=== PATIENT | female | born 1985 | race Caucasian/White ===

== ENCOUNTER 2020-03-12 14:07 | Emergency (ER) | payer BC, SELFPAY ==
--- NOTE | ~2020-03-12 | XR_ITS ---
EXAMINATION: XR chest 1V portable DATE: 03/12/2020 14:55 INDICATION: Palpitations with left shoulder pain TECHNIQUE: frontal view of the chest was obtained. COMPARISON: None FINDINGS: The lungs are clear with no focal airspace opacities, pulmonary edema, pleural effusion or pneumothor ax. The cardiomediastinal silhouette is normal. Visualized bones and soft tissues are unremarkable. IMPRESSION: 1. No acute cardiopulmonary disease. Reviewed, dictated and finalized at location B.
--- NOTE | 2020-03-12 14:18 | ECG_ITS ---
Measurements Intervals [place] Rate: 89 P: 43 IA: 137 QRS: 24 QRSD: 81 T: 27 QT: 339 QTc: 414 Interpretive Statements SINUS RHYTHM NONSPECIFIC ST & T-WAVE ABNORMALITY- ANTEROLATERAL LEADS BORDERLINE ECG Electronically Signed On 03-12-2020 16:28:56 CDT by Adal Farrell D.O.
[2020-03-12 14:20] VITALS: BP 132/87; PULSE 92; RESP 18; TEMP 37.6; O2SAT 99
[2020-03-12] MEDS: ASPIRIN 81 MG CHEWABLE TABLET 324 MG PO (14:26)
[2020-03-12 14:48] LABS: Basophils Percent Auto 0.6 % (0.2-1.2); Eosinophils Absolute Auto 0.1 K/mm3 (0-0.3); Eosinophils Percent Auto 1.5 % (0-4.4); Hematocrit 43.3 % (37.0-47.0); Hemoglobin 14.8 g/dL (12.0-15.0); Immature Granulocyte Absolute 0.02 K/mm3 (0.00-0.031); Immature Granulocyte Percent A 0.3 % (0-0.5); Lymphocytes Absolute Auto 1.44 K/mm3 (0.9-3.2); Lymphocytes Percent Auto 23.3 % (18.3-44.2); Mean Corpuscular HGB Conc 34.2 g/dl (32-36); Mean Corpuscular Hemoglobin 29.2 pg (26-34); Mean Corpuscular Volume 85.4 fl (80-100); Mean Platelet Volume 9.7 fl (7.4-10.4); Monocytes Absolute Auto 0.5 K/mm3 (0.1-0.6); Monocytes Percent Auto 8.3 % (2.6-8.5); Neutrophils Absolute Auto 4.1 K/mm3 (1.3-6.7); Platelet Count Result 224 k/mm3 (150-375); Red Blood Count 5.07 M/mm3 (4.2-5.4); Red Cell Distribution Width 12.1 % (11.5-14.5); White Blood Count 6.2 K/mm3 (4.5-10.0)
[2020-03-12 14:58] LABS: INR 0.9; Partial Thromboplastin Time 28.3 SECONDS (22.3-36.8)
--- NOTE | 2020-03-12 15:02 | ED.ARRPALP ---
HPI - Arrhythmia/Palpitations General Chief Complaint: Arrhythmia/Palpitations Stated Complaint: heart palp Time Seen by Provider: 03/12/20 14:27 Source: patient and family Mode of arrival: ambulatory Limitations: no limitations History of Present Illness HPI narrative: 34 years old white female presents with the patient, constant started last night. Patient denies any aggravating or relieving factors. Patient denies any chest pain, shortness of breath, fever, chills, nausea, vomiting, abdominal pain, urinary symptoms. Patient denies any new medications. The patient and her denies any possibility of stress or anxiety. Related Data Home Medications Medication Instructions Recorded Confirmed No Home Medications 03/12/20 03/12/20 Allergies Allergy/AdvReac Type Severity Reaction Status Date / Time No Known Allergies Allergy Verified 03/12/20 14:26 Review of Systems Review of Systems: Narrative: CONSTITUTIONAL: Denies fever, chills, or sweats. EYES: Denies visual changes, redness, or discharge. ENT: Denies rhinorrhea, congestion, sore throat, or otalgia. CARDIOVASCULAR: Denies chest pain, palpitations, or edema. RESPIRATORY: Denies cough or dyspnea. GASTROINTESTINAL: Denies abdominal pain, nausea, vomiting, or diarrhea. GENITOURINARY: Denies dysuria or hematuria. SKIN: Denies rash or itching. MUSCULOSKELETAL: Denies back pain, joint pain, or myalgia. NEUROLOGIC: Denies headache, numbness, or weakness. PSYCHIATRIC: Denies anxiety or depression. [facility] Social History Social History (Updated 03/12/20 @ 15:06 by Angelica Schilling MD) Second hand tobacco smoke exposure: No Alcohol intake: unknown Substance use: unknown Gender identity (if verbalized by the patient): Female Exam Narrative: Exam Narrative: General appearance: Well-developed, well-nourished Skin: Normal color Head: Normocephalic, nontraumatic Eyes: Clear conjunctiva ENT: Oropharynx normal, ears normal, nose normal Neck: Supple, nontender Chest and respiratory: Airway patent, no respiratory distress, no accessory muscle use Heart: Regular rate/rhythm Abdomen: Soft, nontender, no organomegaly, quiet bowel sounds Vascular: Normal peripheral pulses, normal capillary refill. Musculoskeletal: Normal range of motion, nontender back Neurologic: Alert and oriented ?3, [facility] is normal as tested, no gross motor deficit Course Course Emergency Course: Stable Vital Signs Vital signs: Vital Signs Temperature 37.6 C H 03/12/20 14:20 Pulse Rate 92 03/12/20 14:20 Respiratory Rate 18 03/12/20 14:20 Blood Pressure 132/87 03/12/20 14:20 Pulse Oximetry 99 03/12/20 14:20 Temperature 37.6 C H 03/12/20 14:20 Pulse Rate 92 03/12/20 14:20 Respiratory Rate 18 03/12/20 14:20 Blood Pressure 132/87 03/12/20 14:20 Pulse Oximetry 99 03/12/20 14:20 MDM - Arrhythmia/Palpitations MDM Narrative Medical decision making narrative: Patient presents with palpitation which have been steady and constant since last night. EKG showed normal sinus rhythm at 89 bpm, the monitor showing normal heart rhythm while patient is still having palpitation feeling. The plan to get labs, TSH, urine drug screen, d-dimer and chest x-ray. Further plan to follow Patient denies any possibility of anxiety or stress. Lab Data Result diagrams: 03/12/20 14:37 03/12/20 14:37 Labs: Lab Results 03/12/20 03/12/20 03/12/20 Range/Units 14:36 14:36 14:37 WBC 6.2 (4.5-10.0) K/mm3 RBC 5.07 (4.2-5.4) M/mm3 Hgb 14.8 (12.0-15.0) g/dL Hct 43.3 (37.0-47.0) % MCV 85.4 (80-100) fl MCH 29.2 (26-34) pg MCHC 34.2 (32-36)
[2020-03-12 15:06] LABS: Anion Gap 10 mmol/L (8-16); Blood Urea Nitrogen 14 mg/dL (7-17); Calcium 9.4 mg/dL (8.4-10.2); Carbon Dioxide 28 mmol/L (22-30); Chloride 101 mmol/L (98-107); Estimated CRCL calculation 72 ml/min; Estimated Glomerular Filt Rate > 60; Glucose 110 mg/dL (65-105); Sodium 139 mmol/L (137-145)
[2020-03-12 15:18] LABS: Troponin I < 0.012 ng/mL (0.000-0.034)
[2020-03-12 15:43] LABS: Alanine Aminotransferase 23 U/L (4-35); Albumin Level 4.6 g/dL (3.5-5.1); Alkaline Phosphatase 93 U/L (38-126); Anion Gap 9 mmol/L (8-16); Aspartate Amino Transferase 35 U/L (14-36); Bilirubin,Total 0.4 mg/dL (0.2-1.3); Blood Urea Nitrogen 14 mg/dL (7-17); Calcium 9.5 mg/dL (8.4-10.2); Carbon Dioxide 28 mmol/L (22-30); Chloride 101 mmol/L (98-107); Estimated CRCL calculation 72 ml/min; Estimated Glomerular Filt Rate > 60; Glucose 113 mg/dL (65-105); Sodium 138 mmol/L (137-145)
[2020-03-12 15:47] LABS: D Dimer < 0.22 ug/mL (<0.48)
[2020-03-12 15:55] LABS: Add Urine Microscopic? YES; Appearance Urine Clear (Clear); Bilirubin Urine Negative (Negative); Blood Urine Negative (Negative); Color Urine Straw (Yellow); Glucose Urine UA Negative (Negative); Ketones Urine Negative (Negative); Leukocyte Esterase Ur Negative LEU/UL (Negative); Nitrate Urine Negative (Negative); Protein Urine Negative (Negative); RBC Urine 0-2 /hpf (0-2); Specific Grav Ur 1.014 (1.001-1.035); Squamous Epithelial Cell Urine Rare /hpf (Few); Urobilinogen Urine Negative mg/dL (<2.0); WBC Urine 0-3 /hpf
[2020-03-12 16:06] LABS: Amphetamine Screen Urine Negative (Negative); Barbiturate Screen Urine Negative (Negative); Benzodiazepines Screen Urine Negative (Negative); Cannabinoid Screen Urine Negative (Negative); Cocaine Screen Urine Negative (Negative); Methadone Screen Urine Negative (Negative); Opiate Screen Urine Negative (Negative); Phencyclidine Screen Urine Negative (Negative)
[2020-03-12 16:41] VITALS: BP 107/68; PULSE 72; RESP 13; O2SAT 98
== END 2020-03-12 16:49 | disposition home or self-care (01) ==
PROVIDERS: Emergency Provider Emergency Medicine
DX: R00.2 Palpitations (principal); R94.31 Abnormal electrocardiogram [ECG] [EKG]
CPT/HCPCS: 36415; 71045; 80048; 80053; 80307; 81001; 81025; 84443; 84484; 85025; 85380; 85610; 85730; 93005; 99284; A9270

== ENCOUNTER → 2023-02-16 16:34 | Outpatient (CLI) | payer OTHER, SELFPAY ==
--- NOTE | ~2023-02-16 | XR_ITS ---
EXAMINATION: XR chest 2V Exam Date/Time: 02/16/2023 16:59 CDT HISTORY: CHEST PAIN Comparison: 03/12/2020. RESULT: Lines, tubes, and devices: None. Lungs and pleura: Clear. Cardiomediastinal silhouette: Stable. Other: No acute osseous or upper abdominal finding. IMPRESSION: No acute cardiopulmonary process. Reviewed, dictated and finalized at location K.
--- NOTE | ~2023-02-16 | XR_ITS ---
EXAM: XR shoulder LT min 2V DATE: 02/16/2023 17:18 HISTORY: LEFT SHOULDER PAIN . COMPARISON: None available. FINDINGS: Normal mineralization. No fracture or dislocation. No lytic or blastic lesion. Joint space s are maintained. No erosion or periosteal change. Soft tissues within normal limits. IMPRESSION: Normal left shoulder radiograph findings. Reviewed, dictated and finalized at location K.
== END ==
PROVIDERS: PCP Family Medicine; Visit Provider Family Medicine
DX: N64.4 Mastodynia (principal); R07.89 Other chest pain; M25.512 Pain in left shoulder
CPT/HCPCS: 71046; 73030

== ENCOUNTER 2023-02-21 07:20 | Outpatient (CLI) | payer OTHER, SELFPAY ==
--- NOTE | ~2023-02-21 | MM_ITS ---
EXAMINATION: MM screening imani BI w bart HISTORY: Screening TECHNIQUE: Craniocaudal and mediolateral oblique 3-D tomosynthesis images were obtained and synthetic 2-D images were generated. CAD analysis was submitted and interpreted. COMPARISON: No prior mammogram is available for comparison at this institution. BREAST PARENCHYMAL COMPOSITION: There are scattered areas of fibroglandular density. FINDINGS: There are asymmetries in the upper outer quadrant of the right breast with possible archite ctural distortion. There is no evidence for malignancy in the left breast. IMPRESSION: 1. Right breast asymmetries with possible architectural distortion, upper outer quadrant. 2. Additional mammographic views and possible breast ultrasound are recommended. BI-RADS Category 0: Incomplete: Needs additional imaging evaluation. Reviewed, dictated and finalized at location A. IMPRESSION: 1. Right breast asymmetries with possible architectural distortion, upper outer quadrant. 2. Additional mammographic views and possible breast ultrasound are recommended . BI-RADS Category 0: Incomplete: Needs additional imaging evaluation.
== END 2023-02-21 07:21 | disposition home or self-care (01) ==
LOC: CHSIMG 07:22
PROVIDERS: PCP Family Medicine; Visit Provider Family Medicine
DX: Z12.31 Encounter for screening mammogram for malignant neoplasm of breast (principal); R92.8 Other abnormal and inconclusive findings on diagnostic imaging of breast
CPT/HCPCS: 77063; 77067

== ENCOUNTER 2023-02-27 08:49 | Outpatient (CLI) | payer OTHER, SELFPAY ==
--- NOTE | ~2023-02-27 | MMUS_ITS ---
EXAMINATION: MM diagnostic imani RT w bart, US breast RT limited HISTORY: Right breast asymmetry, possible architectural distortion, upper outer quadrant, reported on 02/21/2023 screening mammogram TECHNIQUE: Additional 3-D tomosynthesis images of the right breast were performed and synthetic 2-D i mages were generated. CAD analysis was submitted and interpreted. High resolution upper outer quadran t right breast ultrasound was performed. COMPARISON: 02/21/2023 bilateral screening mammogram FINDINGS: MAMMOGRAPHIC FINDINGS: No suspicious mass or architectural distortion is detected. ULTRASOUND: No suspicious mass or shadowing, cyst or other significant abnormality is noted in the upper outer qu adrant right breast. IMPRESSION: 1. No mammographic or sonographic evidence of malignancy 2. Routine annual mammographic screening is recommended BI-RADS Category 1: Negative Reviewed, dictated and finalized at location A. IMPRESSION: 1. No mammographic or sonographic evidence of malignancy 2. Routine annual mammographic screening is recommended BI-RADS Category 1: Negative
== END 2023-02-27 08:50 | disposition home or self-care (01) ==
PROVIDERS: PCP Family Medicine; Visit Provider Family Medicine
DX: R92.8 Other abnormal and inconclusive findings on diagnostic imaging of breast (principal)
CPT/HCPCS: 76642; 77061; 77065; G0279

== ENCOUNTER 2023-03-09 20:36 | Emergency (ER) | payer OTHER, SELFPAY ==
--- NOTE | ~2023-03-09 | XR_ITS ---
EXAMINATION: XR foot LT min 3V DATE: 03/09/2023 22:59 INDICATION: Left foot injury and pain. TECHNIQUE: 4 views of left foot were obtained. COMPARISON: None. FINDINGS: There is a nondisplaced intra-articular oblique fracture of base of fifth metatarsal. Joint spaces are normal. IMPRESSION: 1. Nondisplaced intra-articular oblique fracture of base of fifth metatarsal. Reviewed, dictated and finalized at location E.
[2023-03-09 20:40] VITALS: BP 134/83; PULSE 102; RESP 20; TEMP 36.2; O2SAT 97
[2023-03-09 22:52] VITALS: BP 147/76; PULSE 85; RESP 20; TEMP 36.1; O2SAT 99
[2023-03-10 00:42] VITALS: BP 123/73; PULSE 80; RESP 16; TEMP 35.9; O2SAT 100
--- NOTE | 2023-03-10 01:48 | ED.LOWEXIN ---
HPI - Extremity Injury (Lower) General Chief Complaint: Extremity Injury, Lower Stated Complaint: foot pain Time Seen by Provider: 03/10/23 01:41 History of Present Illness HPI Narrative: 37-year-old female reports to the emergency department for evaluation for left foot pain after she fell while playing volleyball prior to arrival. Patient states she was playing volleyball outside and inverted her ankle and felt a crack in the lateral aspect of her left foot. She reports difficulty ambulating since then with associated pain. She denies other injury acquired. She did not hit her head or lose consciousness. She denies ankle pain, leg pain, paresthesias. Related Data Allergies Allergy/AdvReac Type Severity Reaction Status Date / Time No Known Allergies Allergy Verified 02/09/21 15:10 Review of Systems Review of Systems: CONSTITUTIONAL: Denies fever, chills EYES: Denies visual changes, redness, or discharge. ENT: Denies rhinorrhea, congestion, sore throat, or otalgia. CARDIOVASCULAR: Denies chest pain, palpitations, or edema. RESPIRATORY: Denies cough or dyspnea. GASTROINTESTINAL: Denies abdominal pain, nausea, vomiting, or diarrhea. GENITOURINARY: Denies dysuria or hematuria. SKIN: Denies rash or itching. MUSCULOSKELETAL: See HPI NEUROLOGIC: Denies headache, numbness, dizziness, or weakness. PSYCHIATRIC: Denies anxiety or depression. [facility] Past Medical History Medical History Labral tear of hip, degenerative Surgical History Surgical History History of hip surgery Social History Social History Social History: Smoking status: Never smoker Second hand tobacco smoke exposure: No Alcohol intake: never Substance use: never Substance use type: does not use Living arrangements: with family Occupation/Education: occupation Gender identity (if verbalized by the patient): Female Sexual Orientation (if Verbalized by the Patient): Straight or Heterosexual Exam Narrative: GENERAL: Well-appearing, in no acute distress. HEAD: Normocephalic NECK: Supple. CHEST: No respiratory distress. Clear to auscultation, no adventitious breath sounds. HEART: Regular rate and rhythm. No murmur heard. Normal peripheral pulses. EXTREMITIES: Tenderness to the proximal fifth metatarsal. No tenderness to remainder of foot, ankle or lower extremity. No overlying skin changes, lacerations or abrasions. Cap refill less than 2. Sensation intact. DP pulse 2+. SKIN: Warm, dry, no rash. NEURO: No focal deficits. Alert and oriented x3. PSYCH: Normal mood and affect. Course Vital Signs Vital signs: Vital Signs Temperature 97.2 F L 03/09/23 20:40 Pulse Rate 102 H 03/09/23 20:40 Respiratory Rate 20 03/09/23 20:40 Blood Pressure 134/83 03/09/23 20:40 Pulse Oximetry 97 03/09/23 20:40 Temperature 96.6 F L 03/10/23 00:42 Pulse Rate 80 03/10/23 00:42 Respiratory Rate 16 03/10/23 00:42 Blood Pressure 123/73 03/10/23 00:42 Pulse Oximetry 100 03/10/23 00:42 MDM - Extremity Injury (Lower) MDM Narrative Medical decision making narrative: 37-year-old female reports for evaluation for left foot pain after she had a mechanical fall playing volleyball prior to arrival. No other injuries acquired. Vital stable other than mild tachycardia that has since resolved. Patient is well-appearing on exam with tenderness to the proximal fifth metatarsal. She is neurovascularly intact. X-rays obtained showing a nondisplaced intra-articular oblique fracture of the base of the fifth metatarsal. Imaging discussed with patient. She was placed in a posterior OCL and provided crutches. Encouraged Tylenol, ibuprofen, RICE, [place] prescription provided for breakthrough pain. Referral for orthopedics provided and encouraged cecelia
[2023-03-10] MEDS: IBUPROFEN 600 MG TABLET PO (01:58)
[2023-03-10] MEDS: ACETAMINOPHEN 325 MG TABLET 650 MG PO (01:59)
--- NOTE | 2023-03-10 02:22 | PC.NURSE ---
Short leg ortho splint to left lwoer extremity. Pt tolerated well. CMS intact befor and after application
--- NOTE | 2023-03-18 15:39 | PC.NURSE ---
Late entry: short leg OCl to left lower ext applied on 03/10/23 @ [id number]
== END 2023-03-10 02:28 | disposition home or self-care (01) ==
PROVIDERS: Emergency Provider Physician Assistant; PCP Family Medicine
DX: S92.355A Nondisplaced fracture of fifth metatarsal bone, left foot, initial encounter for closed fracture (principal); X50.9XXA Other and unspecified overexertion or strenuous movements or postures, initial encounter; Y93.68 Activity, volleyball (beach) (court)
CPT/HCPCS: 29515; 73630; 99284; A9270

== ENCOUNTER → 2023-04-08 09:49 | Outpatient (CLI) | payer OTHER, SELFPAY ==
--- NOTE | ~2023-04-08 | XR_ITS ---
EXAM: XR foot LT min 3V DATE: 04/08/2023 10:09 HISTORY: Fx 5th metatarsal . COMPARISON: 03/09/2023. FINDINGS: Normal mineralization. Redemonstration of the transverse proximal left fifth metatarsal fr acture, with interval healing change. No new acute fracture or dislocation. No lytic or blastic lesio n. Joint spaces are maintained. No erosion or periosteal change. Soft tissues within normal limits. IMPRESSION: Evolving healing change in the transverse fracture of the proximal left fifth metatarsal. Reviewed, dictated and finalized at location K.
== END ==
DX: S92.352D Displaced fracture of fifth metatarsal bone, left foot, subsequent encounter for fracture with routine healing (principal)
CPT/HCPCS: 73630

== ENCOUNTER 2023-08-14 17:36 | Emergency (ER) | payer OTHER, SELFPAY ==
[2023-08-14 17:41] VITALS: BP 131/85; PULSE 85; RESP 16; TEMP 36.5; O2SAT 99
--- NOTE | 2023-08-14 18:27 | ED.FEMALEGU ---
HPI - Female Genitourinary General Chief complaint: Urogenital-Female Stated complaint: Uti symptoms Time Seen by Provider: 08/14/23 18:21 Source: patient and RN notes reviewed Mode of arrival: ambulatory Limitations: no limitations History of Present Illness HPI Narrative: Patient presents today complaining of dysuria, low back pain, decreased appetite, suprapubic pressure, and fever up to 100.4. Symptoms began this morning. States dysuria has worsened throughout the day. No [id number] treatment prior to arrival. No recent antibiotic use. Related Data Allergies Allergy/AdvReac Type Severity Reaction Status Date / Time No Known Allergies Allergy Verified 08/14/23 17:50 Review of Systems Review of Systems: CONSTITUTIONAL: Denies body aches, chills, or sweats.+ fever EYES: Denies visual changes, redness, or discharge. ENT: Denies rhinorrhea, congestion, sore throat, or otalgia. CARDIOVASCULAR: Denies chest pain, palpitations, or edema. RESPIRATORY: Denies cough or dyspnea. GASTROINTESTINAL: Denies nausea, vomiting, or diarrhea.+ suprapubic pressure, decreased appetite GENITOURINARY: + dysuria SKIN: Denies rash, itching, or wounds. MUSCULOSKELETAL: Denies joint pain, or myalgia.+ low back pain NEUROLOGIC: Denies headache, numbness, tingling, or weakness. PSYCH: Denies depression or anxiety. [facility] Past Medical History Medical History Labral tear of hip, degenerative Surgical History Surgical History History of hip surgery Social History Social History Social History: Smoking status: Never smoker Second hand tobacco smoke exposure: No Alcohol intake: never Substance use: never Substance use type: does not use Living arrangements: with family Occupation/Education: occupation Gender identity (if verbalized by the patient): Female Sexual Orientation (if Verbalized by the Patient): Straight or Heterosexual Comments At time of signature, I have reviewed and agree with nursing past medical, surgical, social and family history unless otherwise noted. Please see nursing chart for further information. There is no relevant family history pertinent to the presenting complaint Exam Narrative: GENERAL: Well-appearing, well-nourished, and in no acute distress. HEAD: Normocephalic, atraumatic. EYES: EOMI. No redness or drainage. Conjunctivae normal. ENT: Mucous membranes pink and moist. NECK: Normal AROM. CHEST: No respiratory distress. Clear to auscultation. HEART: Regular rate and rhythm. No murmur appreciated. ABDOMEN: Soft, nontender, nondistended, normal active bowel sounds. -CVAT MUSCULOSKELETAL: No bony tenderness. EXTREMITIES: Normal range of motion. No edema. SKIN: Warm, dry, no rash. Capillary refill normal. Normal skin turgor. NEURO: No focal deficits. Alert and oriented x3. Gait steady. PSYCH: Normal affect. No signs of depression or anxiety. Course Course Level of Care: Express Care Visit Vital Signs Vital signs: Vital Signs Temperature 97.7 F 08/14/23 17:41 Pulse Rate 85 08/14/23 17:41 Respiratory Rate 16 08/14/23 17:41 Blood Pressure 131/85 08/14/23 17:41 Pulse Oximetry 99 08/14/23 17:41 Oxygen Delivery Room Air 08/14/23 17:41 Temperature 97.7 F 08/14/23 17:41 Pulse Rate 85 08/14/23 17:41 Respiratory Rate 16 08/14/23 17:41 Blood Pressure 131/85 08/14/23 17:41 Pulse Oximetry 99 08/14/23 17:41 Oxygen Delivery Room Air 08/14/23 17:41 Reviewed MDM - Female Genitourinary MDM Narrative Medical decision making narrative: Urinalysis is negative, but patient will be started on Keflex due to her symptoms. Culture pending. Differential Diagnosis Differential diagnosis: Likely urinary tract infection, vaginitis, cystitis a
== END 2023-08-14 18:36 | disposition home or self-care (01) ==
PROVIDERS: Emergency Provider Nurse Practitioner; PCP Family Medicine
DX: R30.0 Dysuria (principal)
CPT/HCPCS: 81003; 87086; 99213; G0463

== ENCOUNTER 2023-12-16 09:54 | Outpatient (CLI) | payer OTHER, SELFPAY ==
[2023-12-16 10:27] LABS: Basophils Absolute Auto 0.06 K/mm3 (0.00-0.10); Basophils Percent Auto 0.9 % (0.0-1.0); Eosinophils Absolute Auto 0.09 K/mm3 (0.02-0.50); Eosinophils Percent Auto 1.4 % (1.0-6.0); Hematocrit 42.7 % (35.0-49.0); Hemoglobin 14.1 g/dL (12.0-15.0); Immature Granulocyte Absolute 0.03 K/mm3 (0.00-0.00); Immature Granulocyte Percent A 0.5 % (0.0-0.0); Lymphocytes Absolute Auto 1.64 K/mm3 (1.10-4.50); Lymphocytes Percent Auto 25.3 % (18.0-42.0); Mean Corpuscular Hemoglobin 28.2 pg (27.0-31.0); Mean Corpuscular Volume 85.4 fL (78.0-102.0); Monocytes Absolute Auto 0.48 K/mm3 (0.10-0.90); Monocytes Percent Auto 7.4 % (2.0-11.0); Neutrophils Absolute Auto 4.18 K/mm3 (1.70-7.20); Neutrophils Percent Auto 64.5 % (50.0-70.0); Platelet Count Result 203 K/mm3 (150-420); Red Cell Distribution Width 12.3 % (11.6-14.4); White Blood Count 6.5 K/mm3 (4.8-10.8)
[2023-12-16 10:40] LABS: Hemoglobin A1C 5.1 % (<5.7)
[2023-12-16 11:17] LABS: Alanine Aminotransferase 22 U/L (14-59); Albumin Level 3.8 g/dL (3.4-5.0); Alkaline Phosphatase 50 U/L (46-116); Anion Gap 9 mmol/L (4-12); Aspartate Amino Transferase 23 U/L (15-37); Bilirubin,Total 0.4 mg/dL (0.00-1.00); Blood Urea Nitrogen 15 mg/dL (7-18); Calcium 8.8 mg/dL (8.5-10.1); Carbon Dioxide 28 mmol/L (21-32); Chloride 103 mmol/L (98-108); Cholesterol 164 mg/dL (0-200); Estimated Glomerular Filt Rate > 60; Free T4 Free Thyroxine 0.85 ng/dL (0.76-1.46); Glucose 92 mg/dL (70-99); HDL Direct 75 mg/dL (40-60); LDL Cholesterol Calculated 73 mg/dL (<130); Osmolality Calculated 290 mOsm/kg (285-295); Potassium 4.2 mmol/L (3.5-5.1); Sodium 140 mmol/L (136-145); Thyroid Stimulating Hormone 1.54 uIU/mL (0.36-3.74); Total Protein 7.1 g/dL (6.4-8.2); Triglycerides 81 mg/dL (0-150); Vitamin B12 778 pg/mL (193-986)
[2023-12-19 11:39] LABS: Vitamin D 1,25 (OH)2 Total 44 pg/mL (18-72); Vitamin D2 1,25 (OH)2 10 pg/mL; Vitamin D3 1,25 (OH)2 34 pg/mL
== END 2023-12-16 09:55 | disposition home or self-care (01) ==
LOC: CHSLAB 09:56
PROVIDERS: PCP Nurse Practitioner Women's Health; Visit Provider Nurse Practitioner Women's Health
DX: N93.8 Other specified abnormal uterine and vaginal bleeding (principal)
CPT/HCPCS: 36415; 80053; 80061; 82607; 82652; 83036; 84439; 84443; 85025

== ENCOUNTER 2024-01-29 00:56 | Day surgery (SDC) | payer OTHER, SELFPAY ==
--- NOTE | 2024-01-18 16:29 | SUR.PREOP ---
Report to the Outpatient Waiting Room, entrance under the green pavilion located off [facility], at time _0715_ on date _01/29/24_. Planned Procedure Time: _09_. Time changes happen often and if your time is changed the preop area will call you the afternoon before. - You and your visitor will be asked to self-screen and do not enter if you have any COVID symptoms. - A mask is optional within the hospital at this time. Patients may have clear liquids (water, carbonated beverages, clear teas, apple juice) until 3 hours prior to surgery with a maximum of 20 ounces. - No food from midnight until time of surgery - Infants may have breast milk until 4 hours before surgery, infant formula 6 hours prior to surgery. - Children will be allowed to drink immediately following surgery. If applicable, please bring a bottle or sippy cup to assist with drinking. Juice, water, soda, and popsicles are readily available. For infants on formula, please bring formula the day of surgery. Pacifiers are allowed. Take the following medications with a SIP of water the morning of surgery: n/a DO NOT STOP ANY OF YOUR OTHER PRESCRIPTION MEDICATIONS PRIOR TO SURGERY ?EXCEPT THE FOLLOWING Medications to discontinue per physician - hold multivitamin 3 days prior to procedure Date to take last dose Please no make-up, nail portuguese, hairspray, perfume, deodorant, or body powder the day of surgery. No jewelry (including any body piercings) or valuables the day of surgery, leave them at home. Please take a shower or bath the night before, or the morning of, surgery with an antibacterial soap. Wear comfortable, loose fitting clothing. Children are encouraged to wear pajamas. - Jewelry must be removed prior to entering the operating room. Rings and piercings that are not removed may be cut off. - The hospital will not accept responsibility for valuables. - Please leave all valuables, including medications, at home the day of surgery. If you are going home after surgery, a licensed logging truck driver must drive you home. - NO public transportation without another adult if you receive anesthesia. - We recommend that an adult stay with you for 24 hours following discharge. - We also recommend that you do not drive, make important decision, drink alcoholic beverages, or take any drugs that were not prescribed by your health care provider for at least 24 hours after your discharge time. For Pediatric surgeries, we recommend two adults accompany the child home. Follow any additional instructions given to you from your surgeon. If you or anyone in your household have experienced Covid symptoms in the past week, please notify your surgeon or the nurse liaison at the phone number below for possible testing. Telephone instructions given to __patient__and asked if any additional questions and then verbalized understanding. Patient advised to call surgeon office or pre surgery nurse liaison [phone] if any additional questions.
[2024-01-18 16:32] VITALS: BMI 27.4
[2024-01-29 07:15] VITALS: BP 121/68; PULSE 72; RESP 16; TEMP 36.1; O2SAT 100; BMI 27.7
--- NOTE | 2024-01-29 07:25 | WPDHPUPDATE1 ---
History and Physical Update Update Date/Time: 01/29/24 07:25 History and Physical has been reviewed, including an updated exam of the patient. There are NO changes in the patient's condition. Risks, benefits, and alternatives have been discussed and questions answered. Patient agrees to proceed with procedure.
--- NOTE | 2024-01-29 07:25 | PM.HPGS ---
History of Present Illness History of Present Illness Consent: Risks, benefits, and alternatives have been discussed and questions answered. Patient agrees to proceed with procedure. Chief complaint: menorrhagia Narrative: Meghna Villa is a 38 year old female with heavy cycles. Ultrasound is performed and normal. It was recommended to further undergo workup with hysteroscopy and D&C. Risks of infection, bleeding, perforation, and possible pathology are reviewed. Patient voices understanding and agrees to proceed. Review of Systems Review of Systems: not repeated day of surgery; patient states no changes in status PMFSH Past Medical History Medical History (Updated 01/29/24 @ 07:28 by Grecia Jauregui MD) Migraines Surgical History Surgical History (Updated 01/29/24 @ 07:27 by Grecia Jauregui MD) History of x2 History of hip surgery Right 2015 left 2018 Social History Social History Social History: Smoking status: Never smoker Second hand tobacco smoke exposure: No Alcohol intake: never Substance use: never Substance use type: does not use Living arrangements: with family Occupation/Education: occupation Gender identity (if verbalized by the patient): Female Sexual Orientation (if Verbalized by the Patient): Straight or Heterosexual Meds Home Medications and Allergies Home Medications Medication Instructions Recorded Confirmed Type multivitamin 1 tablet PO DAILY 01/18/24 01/18/24 History Allergies Allergy/AdvReac Type Severity Reaction Status Date / Time morphine AdvReac Mild Itching Verified 01/18/24 16:28 Exam Const: General: healthy appearing and alert Orientation/consciousness: patient oriented x3 Resp: Effort & Inspection: normal respiratory effort : External Female Exam: normal external appearance Speculum Exam - Vagina: normal appearance of the vagina and normal vaginal discharge Speculum Exam - Cervix: normal appearance of the cervix Bimanual exam- vagina & uterus: uterine size normal and consistency normal Bimanual Exam- Adnexa, other: normal adnexae and No adnexal tenderness Neuro: General: patient oriented x3 Assessment and Plan Assessment and plan (1) Menorrhagia: Code(s): N92.0 - Excessive and frequent menstruation with regular cycle Status: Acute Assessment and Plan: plan to proceed with D&C hysteroscopy
[2024-01-29] MEDS: LACTATED RINGERS 1,000 ML 30 ML IV CONT (08:15)
[2024-01-29] MEDS: ACETAMINOPHEN 500 MG TABLET 1000 MG PO (08:19)
--- NOTE | 2024-01-29 08:21 | P.PNAN_ITS ---
Anes - Initial Pre Proc Eval Procedure: Operation Date: 01/29/24 09:15 Proposed Procedures p Hysteroscopy Dilation and Curettage - Grecia Jauregui MD Date/Time: 01/29/24 08:21 Surgeon: Grecia Jauregui MD Pre Op Diagnosis: menorrhagia Patient Data Age: 38 Gender: F Height: 1.57 m Weight: 68.04 kg Allergies Allergy/AdvReac Type Severity Reaction Status Date / Time morphine AdvReac Mild Itching Verified 01/18/24 16:28 Home Medications Medication Instructions Recorded Confirmed Type multivitamin 1 tablet PO DAILY 01/18/24 01/18/24 History Patient hx anesthesia problems: none Family hx anesthesia problems: none Results Review: All pre-operative results and documents have been reviewed as part of the pre- operative evaluation. [facility]LY [facility] Past Medical History Medical History Migraines Surgical History Surgical History History of x2 History of hip surgery Right 2015 left 2018 Social History Social History Social History: Smoking status: Never smoker Second hand tobacco smoke exposure: No Alcohol intake: never Substance use: never Substance use type: does not use Living arrangements: with family Occupation/Education: occupation Gender identity (if verbalized by the patient): Female Sexual Orientation (if Verbalized by the Patient): Straight or Heterosexual Anes - Eval Final PreProcedure Day of Procedure 01/29/24 08:21 Patient weight: overweight Heart: regular rate and rhythm Lungs: clear to auscultation Airway: Mallampati scale class II Neurological: alert and oriented Last oral intake: >/= 8 hours ASA classification: I Emergent: no Anesthetic plan: proceed Anesthesia type and monitoring: general GIVS and standard monitoring Results Review: All pre-operative results and documents have been reviewed as part of the pre- operative evaluation. Pt active w yardwork, kickboxing, no cp or sob. Informed Consent: The patient's anesthetic plan and its attendant risks and benefits were discussed with the patient/family/POA. Questions were solicited and answers provided to the satisfaction of the patient/family/POA.
[2024-01-29] MEDS: KETOROLAC 15 MG/ML VIAL (*BKC) IV PUSH (08:42)
--- NOTE | 2024-01-29 09:02 | W.PM.PROC2 ---
Procedure Note - Detailed Date of Procedure 01/29/24 Pre-op Diagnosis menorrhagia Post-op Diagnosis Same Procedure Performed D&C hysteroscopy Surgeon Grecia Jauregui MD Anesthesia MAC Findings uterus sounds to 8.5cm and appears grossly normal Description of Procedure The patient is taken to the operating room and placed under anesthesia in the dorsal lithotomy position. She was prepped and draped in usual sterile fashion. [place] speculum was placed in the vagina and the cervix grasped on the anterior lip with a tenaculum. The uterus is sounded to 8.5cm. The diagnostic hysteroscope was placed and no abnormalities are noted. The hysteroscope was removed and the sharp OO curette is used to curette the endometrium until a good uterine cry noted in all areas. All instruments are removed. Sponge, needle, and instrument counts are correct per the OR staff. Patient was taken to recovery in stable condition. Estimated Blood Loss 5 Drains No Packing No Pathology Yes ( Endometrial curettings) Complications No immediate complications Condition Stable Disposition PACU
[2024-01-29 09:04] VITALS: BP 112/62; PULSE 68; RESP 16; O2SAT 99
[2024-01-29 09:15] VITALS: BP 111/63; PULSE 62; RESP 16; O2SAT 100
[2024-01-29 09:30] VITALS: BP 111/69; PULSE 59; RESP 16; O2SAT 100
[2024-01-29] MEDS: ONDANSETRON INJ 4 MG/2 ML VIAL IV PUSH (09:55)
[2024-01-29 10:00] VITALS: BP 112/64; PULSE 59; RESP 16; O2SAT 100
[2024-01-29] MEDS: oxyCODONE HCL (*CRX) 5 MG TAB IR PO (10:10)
[2024-01-29 10:18] VITALS: BP 118/63; PULSE 61; RESP 16; O2SAT 100
== END 2024-01-29 10:23 | disposition home or self-care (01) ==
PROVIDERS: PCP Family Medicine; Visit Provider Obstetrics & Gynecology Gynecology
PROC: 0U5B8ZZ Destruction of Endometrium, Via Natural or Artificial Opening Endoscopic (ICD-10-PCS; CPT 58563; principal; 2024-01-29 09:15)
DX: N92.0 Excessive and frequent menstruation with regular cycle (principal); Z98.890 Other specified postprocedural states
CPT/HCPCS: 58558; 88305; A9270; J1100; J1885; J2250; J2405; J2704; J3010; J7120

== ENCOUNTER 2024-03-01 07:17 | Outpatient (CLI) | payer OTHER, SELFPAY ==
--- NOTE | ~2024-03-01 | MM_ITS ---
EXAMINATION: MM screening imani BI w batr HISTORY: Screening TECHNIQUE: Craniocaudal and mediolateral oblique 3-D tomosynthesis images were obtained and synthetic 2-D images were generated. CAD analysis was submitted and interpreted. COMPARISON: Comparison to multiple prior studies sequentially, with oldest reviewed study dated 02/21. BREAST PARENCHYMAL COMPOSITION: There are scattered areas of fibroglandular density. FINDINGS: There is developing asymmetry in the upper aspect of the right breast the left breast is st able without evidence for malignancy. IMPRESSION: 1. Developing right breast asymmetry. 2. Additional mammographic views and possible breast ultrasound are recommended. BI-RADS Category 0: Incomplete: Needs additional imaging evaluation. Reviewed, dictated and finalized at location B. IMPRESSION: 1. Developing right breast asymmetry. 2. Additional mammographic views and possible breast ultrasound are recommended . BI-RADS Category 0: Incomplete: Needs additional imaging evaluation.
== END 2024-03-01 07:18 | disposition home or self-care (01) ==
LOC: CHSIMG 07:18
PROVIDERS: PCP Family Medicine; Visit Provider Family Medicine
DX: Z12.31 Encounter for screening mammogram for malignant neoplasm of breast (principal); R92.8 Other abnormal and inconclusive findings on diagnostic imaging of breast
CPT/HCPCS: 77063; 77067

== ENCOUNTER 2024-03-12 08:50 | Outpatient (CLI) | payer OTHER, SELFPAY ==
--- NOTE | ~2024-03-12 | MMUS_ITS ---
EXAMINATION: MM diagnostic imani RT w bart, US breast RT limited HISTORY: Follow-up right breast asymmetry TECHNIQUE: Additional 3-D tomosynthesis images of the right breast were performed and synthetic 2-D i mages were generated. CAD analysis was submitted and interpreted. High resolution Limited right breas t ultrasound was performed. COMPARISON: Comparison to multiple prior studies sequentially, with oldest reviewed study dated 02/21. BREAST PARENCHYMAL COMPOSITION: Not dense: There are scattered areas of fibroglandular density. FINDINGS: MAMMOGRAPHIC FINDINGS: There are no suspicious masses, calcifications or architectural distortion in the right breast to sug gest malignancy. ULTRASOUND: Limited right breast ultrasound: Normal heterogeneous echotexture without focal solid or cystic mass. IMPRESSION: 1. No evidence for malignancy in the right breast. 2. Routine yearly screening mammogram and regular clinical breast examination are recommended. BI-RADS Category 1: Negative Reviewed, dictated and finalized at location B. IMPRESSION: 1. No evidence for malignancy in the right breast. 2. Routine yearly screening mammogram and regular clinical breast examination a re recommended. BI-RADS Category 1: Negative
== END 2024-03-12 08:51 | disposition home or self-care (01) ==
PROVIDERS: PCP Family Medicine; Visit Provider Family Medicine
DX: R92.8 Other abnormal and inconclusive findings on diagnostic imaging of breast (principal)
CPT/HCPCS: 76642; 77061; 77065; G0279

== ENCOUNTER 2025-03-24 07:21 | Outpatient (CLI) | payer OTHER, SELFPAY ==
--- NOTE | ~2025-03-24 | MM_ITS ---
EXAMINATION: MM screening imani BI w bart HISTORY: Screening TECHNIQUE: Craniocaudal and mediolateral oblique 3-D tomosynthesis images were obtained and synthetic 2-D images were generated. CAD analysis was submitted and interpreted. COMPARISON: 03/01/2024 BREAST PARENCHYMAL COMPOSITION: There are scattered areas of fibroglandular density. FINDINGS: Asymmetry in the upper right breast, posterior depth, seen in the right MLO projection. Asymmetry at the level of the posterior nipple line, posterior depth, seen in the left CC projection. No suspicious calcifications. IMPRESSION: 1. Asymmetry in the upper-outer breast, posterior depth, seen in the right MLO projection. The study is incomplete. A diagnostic right breast mammogram and a diagnostic right breast ultrasound is recommended. 2. Asymmetry at the level of the posterior nipple line, posterior depth, seen in the left CC projection. The study is incomplete. A diagnostic left breast mammogram and a diagnostic left breast ultrasound is recommended. BI-RADS 0: Incomplete-Need additional imaging evaluation. Reviewed, dictated and finalized at location Q. IMPRESSION: 1. Asymmetry in the upper-outer breast, posterior depth, seen in the right MLO projection. The study is incomplete. A diagnostic right breast mammogram and a diagnostic right breast ultrasound is recommended. 2. Asymmetry at the level of the posterior nipple line, posterior depth, seen i n the left CC projection. The study is incomplete. A diagnostic left breast imani mogram and a diagnostic left breast ultrasound is recommended. BI-RADS 0: Incomplete-Need additional imaging evaluation.
== END 2025-03-24 07:22 | disposition home or self-care (01) ==
PROVIDERS: PCP Family Medicine; Visit Provider Family Medicine
DX: Z12.31 Encounter for screening mammogram for malignant neoplasm of breast (principal); R92.8 Other abnormal and inconclusive findings on diagnostic imaging of breast
CPT/HCPCS: 77063; 77067

== ENCOUNTER 2025-04-15 08:45 | Outpatient (CLI) | payer OTHER, SELFPAY ==
--- NOTE | ~2025-04-15 | MM_ITS ---
EXAMINATION: MM diagnostic imani BI w bart INDICATION: 39-year old female; BI-RADS 0, callback to evaluate Both breasts asymmetries COMPARISON: 03/24/2025 through 02/21/2023 TECHNIQUE: Digital breast tomosynthesis True lateral view and spot compression pain CC and MLO views of Both breasts were obtained with computer-aided detection to assist in interpretation of the study. FINDINGS: There are scattered areas of fibroglandular density. The asymmetries seen in the upper outer right breast at posterior depth and retroareolar in the left breast on the screening mammogram effaces on additional views, compatible with normal overlapping tissue.. IMPRESSION: Both breasts asymmetries represents superimposition of fibroglandular tissue. No further investigation necessary. RECOMMENDATION: Annual screening mammography in 12 months BI-RADS 2, BENIGN Reviewed, dictated and finalized at location B. IMPRESSION: Both breasts asymmetries represents superimposition of fibroglandular tissue. N o further investigation necessary. RECOMMENDATION: Annual screening mammography in 12 months BI-RADS 2, BENIGN
--- OUTSIDE RECORDS SUMMARY | 2025-04-15 08:59 | XMS_ITS | Clinical Summary ---
Author Organization [facility] Address Count includes the [facility] [place] [address] Care Team Providers Care Bridge Opener Name Role Phone Unavailable Primary Care Provider Unavailabl e Social History Tobacco Use Types Packs/Day Years Used Date Smoking Tobacco: Never Assessed Comments Unknown Sex and Gender Information Value Date Recorded Sex Assigned at Not on file Legal Sex Female 7:06 PM CDT Gender Identity Not on file Sexual Orientation Not on file Last Filed Vital Signs Vital Sign Reading Time Taken Comments Blood Pressure 124/70 02/20/2013 9:32 AM CDT Pulse 74 02/20/2013 9:32 AM CDT Temperature - - Respiratory Rate - - Oxygen Saturation - - Inhaled Oxygen Concentration - - Weight 58.5 kg (129 lb) 02/20/2013 9:32 AM CDT Height 157.5 cm (5' 2) 02/20/2013 9:32 AM CDT Body Mass Index 23.59 02/20/2013 9:32 AM CDT Plan of Treatment Health Maintenance Due Date Last Done Comments Cervical Cancer Screening Pa p Smear (Age 30 to 64) Every 3 Years 1983 Annual Physical 1986 Hepatitis C 2001 DTaP, Tdap and Td Vaccines ( 1 - Tdap) 2002 Hepatitis B Vaccines (1 of 3 - 19+ 3-dose series) 2002 HPV Vaccines (1 - 3-dose SCD M series) 2010 Cervical Cancer Screening Pa p with HPV Testing (Age 30 to 64) Every 5 Years 05/05/2022 05/05/2017 Cervical Cancer Screening with HPV 05/05/2022 Mammogram Screening 2023 COVID-19 Vaccine (2023-2 5 season) 2025 Meningococcal B Vaccine Aged Out No l onger eligible based on patient's age to complete this topic Meningococcal Vaccine Aged Out No rebeca sander eligible based on patient's age to complete this topic Pneumococcal Vaccine: Pediat rics (0 to 5 Years) and At-Risk Patients (6 to 49 Years) Aged Out No longer eligi ble based on patient's age to complete this topic RSV Immunizations Under 20 Months Aged Out No longer eligible based on patient's age to complete this topic Procedures Procedure Name Priority Date/Time Associated Diagnosis Comments HPV MRNA E6/E7 Routine 05/05/2017 6:47 PM CDT from Last 3 Months or Most Recently Relevant to Health Maintenance Results * HPV MRNA E6/E7 (05/05/2017 6:47 PM CDT) HPV MRNA E6/E7 Not Detected NOT DETECTED 05/11/2017 11:37 AM CDT [employer] MARTÍNEZ DAVID Comment: This test was performed using the APTIMA(R) HPV Assay([employer]This assay detects E6/E7 viral messenger RNA (mRNA)from 14 high-risk HPV types (16,18,31,33,35,39,45,51,52,56,58,59,66,68).For additional information please refer to:http://education.Favoe/faq/YBY781o4(This link is being provided for informational/educational purposes only.)Test Performed by Miles CalderonXATA [facility],[address] [place] [address] [id number] Justice M.D., Ph.D., Director of [phone], [facility] [id number] FLUID SPECIMEN / Unknown 05/05/2017 6:47 PM CDT 05/05/2017 6:47 PM CDT us Generic Conversion Md LA[facility]A PATHOLOGY/CYTOLOGY CHAR MARTINEZ Final Result [employer] KEIMILES [address] [place] [address] , from Last 3 Months or Most Recently Relevant to Health Maintenance Advance Directives Documents on File Type Date Recorded 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
== END 2025-04-15 08:46 | disposition home or self-care (01) ==
LOC: CHSIMG 08:47
PROVIDERS: PCP Family Medicine; Visit Provider Family Medicine
DX: R92.8 Other abnormal and inconclusive findings on diagnostic imaging of breast (principal)
CPT/HCPCS: 77062; 77066; G0279